=== PATIENT | female | born 1950 | race Caucasian/White ===

== ENCOUNTER 2017-03-20 05:07 | Inpatient (IN) | payer MEDICARE, OTHER ==
[2017-03-14 10:41] LABS: HEMATOCRIT 36.9 % (36.0-48.0); HEMOGLOBIN 11.7 g/dL (12.0-16.0)
[2017-03-14 10:51] LABS: BUN (BLOOD UREA NITROGEN) 25 MG/DL (6-23); CALCIUM, SERUM 8.7 MG/DL (8.5-10.4); CHLORIDE, SERUM 110 MMOL/L (96-112); CO2 (CARBON DIOXIDE) 31 MMOL/L (24-34); CREATININE 1.55 MG/DL (0.55-1.02); GFR AFRICAN AMERICAN 39 ML/MIN (>=60); GFR NON AFRICAN AMERICAN 34 ML/MIN (>=60); GLUCOSE, SERUM 181 MG/DL (60-99); POTASSIUM, SERUM 4.6 MMOL/L (3.5-5.3); SODIUM, SERUM 145 MMOL/L (135-148)
--- NOTE | ~2017-03-20 | OP ---
Record Of Operation [facility] [address] [place]. [address] NAME: JANIS ROBLES : 46 STATUS : ADM IN PAT#: [id number] AGE: 67 ADM/REG DATE : 03/20/17 MR#: [id number] REPORT SERV DATE: 03/21/17 DICTATED BY: BRANDEN SUAZO II DATE: 03/20/17 REPORT STATUS : Draft TRANSCRIBED BY: MODL DATE: 03/20/17 DATE OF PROCEDURE: 03/20/2017 PREOPERATIVE DIAGNOSES: 1. 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 2. 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 3. 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 POSTOPERATIVE DIAGNOSES: 1. 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 2. 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 3. 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 PROCEDURES: 1. Hardware removal, C5-C6. 2. Interbody arthrodesis, C4-5, C6-7. 3. Application of prosthetic device, C4-5, C6-7. 4. Anterior instrumentation, C4-5, C6-7. 5. Use of allograft substitute and bone marrow aspirate. 6. Use of a microscope. SURGEON: Branden Suazo M.D. FLUIDS REPLACED: 1400 mL LR. ESTIMATED BLOOD LOSS: 70 mL. DRAINS: One drain. COMPLICATIONS: None. ANTIBIOTIC: Preoperatively. PREOPERATIVE HISTORY: This is a very friendly, 67-year-old female, who reports doing well following her other surgery in the past. She now reports increasing neck and arm pain consistent with discogenic neck pain and cervical radiculopathy. We discussed the pros and cons of surgery. She and I did discuss the increased risk of dysphagia following cervical surgery especially in the revision setting and the older population. PROCEDURE IN DETAIL: After informed consent was obtained, the patient was brought to the operating room at her request and general anesthesia achieved. She was placed in prone position, and the back was prepped and draped in a sterile fashion. A right-sided approach was performed and the retropharyngeal approach carried out followed by subperiosteal exposure from C4 to C7. The telegraph printer mechanic retractors were placed. Next, the C5-6 hardware was Record Of Operation [facility] [address] [place]. [address] NAME: JANIS ROBLES : 46 STATUS : ADM IN PAT#: [id number] AGE: 67 ADM/REG DATE : 03/20/17 MR#: [id number] REPORT SERV DATE: 03/21/17 DICTATED BY: BRANDEN SUAZO II DATE: 03/20/17 REPORT STATUS : Draft TRANSCRIBED BY: DANIEL DATE: 03/20/17 identified. This was a separate plate and screw construct, and this was removed without difficulty. Next, the [place] pins were placed followed by use of the microscope. Under microscopic visualization, the diskectomy was initiated with a knife followed by removal of the disk with pituitary rongeurs, Kerrison rongeurs, and curettes. The endplates were denuded of their cartilage followed by removal of the posterolateral osteophytes including the posterior longitudinal ligament. The central canal and foramina were decompressed. The prosthetic device was trialed and placed at C6-7. This contained allograft substitute and bone marrow aspirate. Next, the attention was turned to C4-5 where upon the disk was removed and endplates prepared. The pituitary rongeurs, and Kerrison rongeurs were used. The posterior ligament was also taken down. Next, the prosthetic device was trialed and chosen at C4-5, this was placed without difficulty. Next, the [place] pins were removed and the anterior fixation device placed. Please note, this was a separate plate and screw construct, and two screws placed in the C4, C5, C6, and C7. The bone quality was moderately osteoporotic especially at C4, a deep drain was placed. Standard closure was performed following radiographic confirmation of the appropriate placement of the implants. Standard dressings were applied. The patient was transferred to PACU in stable condition. MATHEW/DANIEL Branden Suazo II, M.D. / [id number] CC: Mark Newell II, M.D.
[~2017-03-20 05:07] MED LIST: ACTOS15 PO; AMARYL2 PO; EFFEXXR75 PO; L20 PO; LIOR10 PO; LIPITOR20 PO; LISINOPRIL40 MG PO; PERCOCET 7.5/321 TAB PO; PROTONIX PO; WELLXL150 PO
[2017-03-20 14:36] LABS: BUN (BLOOD UREA NITROGEN) 26 MG/DL (6-23); CALCIUM, SERUM 8.1 MG/DL (8.5-10.4); CHLORIDE, SERUM 106 MMOL/L (96-112); CO2 (CARBON DIOXIDE) 27 MMOL/L (24-34); CREATININE 1.49 MG/DL (0.55-1.02); GFR AFRICAN AMERICAN 41 ML/MIN (>=60); GFR NON AFRICAN AMERICAN 35 ML/MIN (>=60); POTASSIUM, SERUM 4.5 MMOL/L (3.5-5.3); SODIUM, SERUM 140 MMOL/L (135-148)
[2017-03-20 14:37] LABS: GLUCOSE, SERUM 291 MG/DL (60-99)
[2017-03-21 04:35] LABS: BASOPHILS 0 %; EOSINOPHILS 0 %; HEMATOCRIT 34.7 % (36.0-48.0); HEMOGLOBIN 11.1 g/dL (12.0-16.0); IMMATURE GRANULOCYTES 0.3 %; IMMATURE GRANULOCYTES ABSOLUTE 0.03 10/3/uL (0.0-0.11); LYMPHOCYTES 5.7 %; LYMPHOCYTES ABSOLUTE 0.62 10/3/uL (0.67-4.30); MANUAL DIFF NO %; MEAN CORPUSCULAR HEMOGLOB 30.3 pg (26.0-34.0); MEAN CORPUSCULAR VOLUME 94.8 fL (80-100); MEAN PLATELET VOLUME 10.2 fL (9.2-13.0); MONOCYTES 3.9 %; MONOCYTES ABSOLUTE 0.42 10/3/uL (0.21-1.20); NEUTROPHILS 90.1 %; PLATELET COUNT 202 10/3/uL (150-400); RBC DISTRIBUTION WIDTH 12.5 % (12.0-16.0); RED CELL COUNT 3.66 10/6/uL (4.0-5.6); WHITE BLOOD CELLS 10.9 10/3/uL (4.5-10.5)
[2017-03-21 04:47] LABS: BUN (BLOOD UREA NITROGEN) 25 MG/DL (6-23); CALCIUM, SERUM 8.1 MG/DL (8.5-10.4); CHLORIDE, SERUM 106 MMOL/L (96-112); CO2 (CARBON DIOXIDE) 27 MMOL/L (24-34); CREATININE 1.49 MG/DL (0.55-1.02); GFR AFRICAN AMERICAN 41 ML/MIN (>=60); GFR NON AFRICAN AMERICAN 35 ML/MIN (>=60); GLUCOSE, SERUM 272 MG/DL (60-99); POTASSIUM, SERUM 5.3 MMOL/L (3.5-5.3); SODIUM, SERUM 140 MMOL/L (135-148)
[2017-03-21] MEDS ORDERED: PERCOCET 10/3251 TAB PO (13:07)
[2017-03-21] MEDS ORDERED: V2 PO (13:07)
[2017-03-21 13:14] LABS: BUN (BLOOD UREA NITROGEN) 26 MG/DL (6-23); CALCIUM, SERUM 8.6 MG/DL (8.5-10.4); CHLORIDE, SERUM 106 MMOL/L (96-112); CO2 (CARBON DIOXIDE) 22 MMOL/L (24-34); CREATININE 1.38 MG/DL (0.55-1.02); GFR AFRICAN AMERICAN 45 ML/MIN (>=60); GFR NON AFRICAN AMERICAN 39 ML/MIN (>=60); GLUCOSE, SERUM 224 MG/DL (60-99); POTASSIUM, SERUM 4.6 MMOL/L (3.5-5.3); SODIUM, SERUM 137 MMOL/L (135-148)
[2017-05-07] MEDS ORDERED: V2 PO (10:21)
[2017-05-07] MEDS ORDERED: DIL2TAB PO (10:21)
[2017-06-07] MEDS ORDERED: PROTONIX PO (18:57)
[2017-06-07] MEDS ORDERED: L20 PO (18:58)
[2017-06-07] MEDS ORDERED: LISINOPRIL40 MG PO (18:58)
[2017-06-07] MEDS ORDERED: PERCOCET 10/3251 TAB PO (18:58)
[2017-06-07] MEDS ORDERED: ACTOS15 PO (18:59)
[2017-06-07] MEDS ORDERED: NEUR100 PO (18:59)
[2017-06-07] MEDS ORDERED: EFFEXXR75 PO (19:00)
[2017-06-07] MEDS ORDERED: LIPITOR20 PO (19:00)
[2017-06-07] MEDS ORDERED: WELLXL150 PO (19:00)
[2017-06-07] MEDS ORDERED: V2 PO (19:01)
[2017-06-07] MEDS ORDERED: AMARYL2 PO (19:02)
[2017-06-07] MEDS ORDERED: METHOC750B PO (19:03)
[2017-06-07] MEDS ORDERED: VISINE TEARS15 ML OPH (19:05)
[2017-06-07] MEDS ORDERED: PROAIR HFA INH (19:05)
[2017-06-15] MEDS ORDERED: V2 PO (11:20)
== END 2017-03-21 15:56 | disposition home or self-care (01) | DRG 473 ==
LOC: SDC/OF 05:07 → PACU 09:57 → 3SO 11:24
PROVIDERS: Nurse Practitioner; Orthopaedic Surgery
PROC: 0RG20A0 Fusion of 2 or more Cervical Vertebral Joints with Interbody Fusion Device, Anterior Approach, Anterior Column, Open Approach (ICD-10-PCS; principal; 2017-03-20 07:00)
PROC: 4A11X4G Monitoring of Peripheral Nervous Electrical Activity, Intraoperative, External Approach (ICD-10-PCS; 2017-03-20 07:00)
PROC: 07DR3ZZ Extraction of Iliac Bone Marrow, Percutaneous Approach (ICD-10-PCS; 2017-03-20 07:00)
DX: M50.121 Cervical disc disorder at C4-C5 level with radiculopathy (principal); E11.22 Type 2 diabetes mellitus with diabetic chronic kidney disease; N18.3 Chronic kidney disease, stage 3 (moderate); I12.9 Hypertensive chronic kidney disease with stage 1 through stage 4 chronic kidney disease, or unspecified chronic kidney disease; K21.9 Gastro-esophageal reflux disease without esophagitis; G47.33 Obstructive sleep apnea (adult) (pediatric)
CPT/HCPCS: 80048; 82962; 83036; 83735; 85014; 85018; 85025; 87641; 88300; 88304; 88311; 93005; A9270-GY; C1713; J0690; J2250; J2405; J2710; J3010